=== PATIENT | female | born 1980 | race Caucasian/White ===

== ENCOUNTER 2016-08-02 17:36 | Emergency (ER) | payer SELFPAY ==
[~2016-08-02] VITALS: Ht 172.7 cm; Wt 70.5 kg
[2016-08-02 17:39] VITALS: BP 157/99; TEMP 98.3
[2016-08-02] MEDS ORDERED: MULTI VITAMINS1 TAB PO (17:41)
[2016-08-02] MEDS ORDERED: CARDI-OMEGA1000 MG PO (17:42)
[2016-08-02] MEDS ORDERED: NATURE'S BLEND400 IU PO (17:42)
[2016-08-02] MEDS ORDERED: NORCO 325 MG-51 TAB PO (18:51)
[2016-08-02 19:14] VITALS: PULSE 86
== END 2016-08-02 19:14 | disposition home or self-care (01) ==
LOC: COL.ER 17:36
DX: S93.402A Sprain of unspecified ligament of left ankle, initial encounter (principal); W01.198A Fall on same level from slipping, tripping and stumbling with subsequent striking against other object, initial encounter; Y92.480 Sidewalk as the place of occurrence of the external cause